=== PATIENT | female | born 1950 | race Two or more races ===

== ENCOUNTER 2025-06-11 21:12 | Emergency (ER) | payer OTHER ==
[~2025-06-11] VITALS: Ht 154.9 cm; Wt 45.4 kg
[2025-06-12 03:19] LABS: BASO % 0.6 % (0.1-1.2); EOS # 0.06 (0.04-0.54); EOS % 0.9 % (0.7-7.0); LYMPH # 2.13 (1.18-3.74); LYMPH % 32.2 % (19.3-53.1); MEAN PLATELET VOLUME 9.70 fl (9.4-12.4); MONO # 0.53 (0.24-0.82); MONO % 8.0 % (4.7-12.5); NEUT # 3.84 (1.56-6.13); NEUT % 58.1 % (34.0-71.1); RED CELL DISTRIBUTION WIDTH 12.3 % (11.6-14.4)
[2025-06-12 04:17] LABS: ALT/SGPT 30.0 U/L (12-78); AST/SGOT 33.0 U/L (15-37); BILIRUBIN TOTAL 0.39 mg/dL (0.3-1.2); BUN CREA RATIO 15.0 (7.0-25.0); CREATININE SERUM 0.66 mg/dL (0.55-1.02); GFR 87.79; GLOBULINA 4.2 G/DL (2.4-3.5); GLUCOSE FASTING 92.0 mg/dL (65-100); OSMOLALITY SERUM 284.0 MOSM/KG (275-295)
[2025-06-12 04:23] LABS: INR 0.97
== END 2025-06-12 09:52 | disposition home or self-care (01) ==
LOC: ER 21:12
PROVIDERS: Physician Assistant Medical
DX: S01.112A Laceration without foreign body of left eyelid and periocular area, initial encounter (principal); S89.82XA Other specified injuries of left lower leg, initial encounter; S79.812A Other specified injuries of left hip, initial encounter; S59.802A Other specified injuries of left elbow, initial encounter; W19.XXXA Unspecified fall, initial encounter; Y93.89 Activity, other specified; Y92.488 Other paved roadways as the place of occurrence of the external cause; Y99.8 Other external cause status